=== PATIENT | female | born 1940 | race Caucasian/White ===

== ENCOUNTER 2017-09-16 02:33 | Emergency (ER) | payer MEDICARE, OTHER ==
--- NOTE | 2017-09-16 03:20 | RADIOLOGY REPORT (SQ) ---
EXAM DESCRIPTION: CT HEAD WITHOUT CLINICAL HISTORY: 77 years Female, trauma COMPARISON: None. TECHNIQUE: No contrast. Coronal and sagittal reformat. This exam was performed according to our departmental dose-optimization program, which includes automated exposure control, adjustment of the mA and/or kV according to patient size and/or use of iterative reconstruction technique. FINDINGS: No hemorrhage or infarct. No mass, mass effect, or midline shift. Atherosclerosis. Mild right frontal scalp swelling. Possible subcentimeter intracranial lipoma along the falx cerebri. Mild dextroconvexity of the nasal septum. Brain and extra-axial structures appear otherwise intact. IMPRESSION: Mild scalp swelling.
--- NOTE | 2017-09-16 03:29 | RADIOLOGY REPORT (SQ) ---
EXAM DESCRIPTION: ELBOW RIGHT AP/LAT CLINICAL HISTORY: 77 years, Female, trauma COMPARISON: None. NUMBER OF VIEWS: 2 Findings: Small osteophyte of the ulnar olecranon. Bones, joints, and soft tissues of ELBOW RIGHT AP/LAT appear otherwise intact. No significant effusion. IMPRESSION: No acute findings.
--- NOTE | 2017-09-16 03:34 | RADIOLOGY REPORT (SQ) ---
EXAM DESCRIPTION: WRIST RIGHT 3 VIEWS CLINICAL HISTORY: 77 years, Female, trauma COMPARISON: None. NUMBER OF VIEWS: Three LIMITATIONS: None. FINDINGS: Extensive comminuted intra-articular fractures of the distal right radius and ulna with the displaced fragments measuring up to 1.3 cm each. There is 0.7 cm lateral displacement of the radial fracture. No evidence of healing. 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 IMPRESSION: Distal right radial and ulnar fractures.
[2017-09-16] MEDS ORDERED: FENTANYL CITRATE INJ/PF 100 MCG/2 ML AMPUL IV ONE (03:55)
--- NOTE | 2017-09-16 04:27 | ER Document Report ---
ED General - General Chief Complaint: Wrist Injury Stated Complaint: FALL,WRIST INJURY Time Seen by Provider: 09/16/17 02:48 Notes: Patient is a pleasant 77-year-old female who fell walking as steps and fell onto an outstretched right hand. She has obvious deformity to the right wrist. She denies any other injuries. She denies hitting her head. She denies numbness into the fingers. TRAVEL OUTSIDE OF THE [place] IN LAST 30 DAYS: No - Related Data Allergies/Adverse Reactions: IV dye Allergy (Uncoded 09/16/17 02:36) Past Medical History - Social History Smoking Status: Never Smoker Chew tobacco use (# tins/day): No Frequency of alcohol use: None Drug Abuse: None Family History: None Patient has suicidal ideation: No Patient has homicidal ideation: No - Past Medical History Cardiac Medical History: Reports: Hx Hypercholesterolemia, Hx Hypertension Endocrine Medical History: Reports: Hx Diabetes Mellitus Type 2 Renal/ Medical History: Denies: Hx Peritoneal Dialysis Musculoskeltal Medical History: Reports Hx Arthritis Past Surgical History: Reports: Hx Bowel Surgery - RUQ Fatty Tumor, Hx Cholecystectomy, Hx Hysterectomy - Immunizations Hx Diphtheria, Pertussis, Tetanus Vaccination: Yes Review of Systems - Review of Systems Notes: My Normal Review Basic REVIEW OF SYSTEMS: CONSTITUTIONAL : Denies fever, chills, or sweats. Denies recent illness. MUSCULOSKELETAL: Right wrist pain SKIN: Denies rash or skin lesions. NEUROLOGICAL: Denies sensory or motor loss. ALL OTHER SYSTEMS REVIEWED AND NEGATIVE. Physical Exam - Vital signs Vitals: Temp 98.4 F 09/16/17 02:48 - Notes Notes: General Appearance: Well nourished, alert, cooperative, no acute distress, no obvious discomfort. Well-appearing. Vitals: reviewed, See vital signs table. Head: no swelling or tenderness to the head Eyes: PERRL, EOMI, Conjuctiva clear Mouth: No decreasd moisture Back: No tenderness to palpation of thoracic or lumbar spine. Neck: No tenderness palpation of cervical spine. No step-offs or deformities. Abdomen: Normal BS, soft, No rigidity, No abdominal tenderness, No guarding, no rebound, no abdominal masses, no organomegaly Extremities: strength 5/5 in all extremities, good pulses in all extremities, patient has obvious deformity to the right wrist. Some swelling over the area. She does have good distal sensation in all fingertips. She has mild pain to palpation of right elbow. No significant swelling or deformity to right elbow. Skin: warm, dry, appropriate color, no rash Neuro: speech clear, oriented x 3, normal affect, responds appropriately to questions. Course - Re-evaluation Re-evalutation: 09/17/17 05:20 Patient's x-ray shows distal radius and ulna fracture with very small amount of ulnar displacement and with some shortening. I do not feel that there is enough reduction to be performed where the benefits of attempting reduction of sedation outweigh the risks of sedation. I therefore placed the patient in a splint and will have her follow-up closely with orthopedics this week. Informed patient to return to ER immediately if she has any weakness numbness into the hand or she has worsening pain. Patient agrees with plan will be discharged home. Dictation of this chart was performed using voice recognition software; therefore, there may be some unintended grammatical errors. - Vital Signs Vital signs: Temp Pulse Resp BP Pulse Ox 98.3 F 18 100/87 H 94 09/16/17 04:58 09/16/17 04:48 09/16/17 04:48 09/16/17 04:48 Procedures - Immobilization Right Wrist Pre-Proc Neuro Vasc Exam: Normal Immobilizer type: Other - reverse sugar tong Performed by: Provider Post-Proc Neuro Vasc Exam: Normal Discharge - Discharge Clinical Impression: Colles' fracture Qualifiers: Encounter type: initial encounter Fracture type: closed Laterality: right Qualified Code(s): S52.531A - Colles' fracture of right radius, initial encounter for closed fracture Condition: Good Disposition: HOME, SELF-CARE Instructions: Oral Narcotic Medication ([facility]) Additional Instructions: Please follow up with the orthopedist. Call the office Monday for a close follow up appointment. The phone number for the office will be under the name Dr. Vasques. Please return to the ER immediately if you develop uncontrolled pain, numbness into your fingers, fevers, or feel unwell. Please loosen the marciano wrap on the splint if you feel that it is too tight. Prescriptions: Oxycodone HCl/Acetaminophen [Percocet 5-325 mg Tablet] 1 tab PO Q4H PRN #15 tablet PRN Reason: Referrals: DRU VASQUES DO [ACTIVE STAFF] - 09/18/17
[2017-09-16] MEDS ORDERED: HYDROCODONE/ACETAMINOPHEN 5-325 MG (6 TAB/ER DISP) PO PRN (04:29)
[2017-09-16 04:53] VITALS: BP 100/87
== END 2017-09-16 04:59 | disposition home or self-care (01) ==
LOC: ER 02:33
PROC: 2W3CX1Z Immobilization of Right Lower Arm using Splint (ICD-10-PCS; principal; 2017-09-16)
DX: S52.531A Colles' fracture of right radius, initial encounter for closed fracture (principal); R22.0 Localized swelling, mass and lump, head; W10.9XXA Fall (on) (from) unspecified stairs and steps, initial encounter; E78.00 Pure hypercholesterolemia, unspecified; I10 Essential (primary) hypertension; E11.9 Type 2 diabetes mellitus without complications; Z90.49 Acquired absence of other specified parts of digestive tract; Z90.710 Acquired absence of both cervix and uterus
CPT/HCPCS: 99284; 73070; 73110; 70450; 29125; J3010; A9270

== ENCOUNTER → 2017-09-18 | Outpatient (CLI) | payer MEDICARE, OTHER ==
[2017-09-18 17:12] LABS: ABSOLUTE BASOPHILS # (AUTO) 0.1 10^3/uL (0.0-0.2); ABSOLUTE EOSINOPHILS # (AUTO) 0.3 10^3/uL (0.0-0.6); ABSOLUTE LYMPHOCYTES (AUTO) 2.9 10^3/uL (0.5-4.7); ABSOLUTE NEUT (AUTO) 6.4 10^3/uL (1.7-8.2); EOSINOPHILS % (AUTO) 2.4 % (0-6); HEMATOCRIT 45.8 % (36.0-47.0); HEMOGLOBIN 15.3 g/dL (12.0-15.5); LYMPHOCYTES % (AUTO) 27.2 % (13-45); MEAN CORPUSCULAR HEMOGLOBIN 27.3 pg (27.0-33.4); MEAN CORPUSCULAR HGB CONC 33.5 g/dL (32.0-36.0); MEAN CORPUSCULAR VOLUME 82 fl (80-97); MONOCYTES % (AUTO) 9.1 % (3-13); PLATELET COUNT 271 10^3/uL (150-450); RED CELL DISTRIBUTION WIDTH 14.3 % (11.5-14.0); SEGMENTED NEUTROPHILS % (AUTO) 60.3 % (42-78); TOTAL CELLS COUNTED % (AUTO) 100 %; WHITE BLOOD COUNT 10.7 10^3/uL (4.0-10.5)
[2017-09-18 17:26] LABS: ANION GAP 12 (5-19); BLOOD UREA NITROGEN 8 mg/dL (7-20); CALCIUM 9.5 mg/dL (8.4-10.2); CARBON DIOXIDE 26 mmol/L (22-30); CHLORIDE 99 mmol/L (98-107); GLUCOSE 219 mg/dL (75-110); POTASSIUM 3.4 mmol/L (3.6-5.0); SODIUM 136.5 mmol/L (137-145)
== END ==
LOC: LAB 16:37
PROVIDERS: ATTEND Orthopaedic Surgery
DX: S52.501A Unspecified fracture of the lower end of right radius, initial encounter for closed fracture (principal); S52.531A Colles' fracture of right radius, initial encounter for closed fracture; X58.XXXA Exposure to other specified factors, initial encounter
CPT/HCPCS: 36415; 80048; 85025

== ENCOUNTER → 2017-09-18 | Outpatient (CLI) | payer MEDICARE, OTHER ==
--- NOTE | 2017-09-18 16:43 | RADIOLOGY REPORT (SQ) ---
EXAM DESCRIPTION: CHEST 2 VIEWS COMPLETED DATE/TIME: 09/18/2017 4:34 pm REASON FOR STUDY: PRE OP COMPARISON: None. EXAM PARAMETERS: NUMBER OF VIEWS: two views TECHNIQUE: Digital Frontal and Lateral radiographic views of the chest acquired. RADIATION DOSE: NA LIMITATIONS: none FINDINGS: LUNGS AND PLEURA: No opacities, masses or pneumothorax. No pleural effusion. MEDIASTINUM AND HILAR STRUCTURES: No masses or contour abnormalities. HEART AND VASCULAR STRUCTURES: Heart normal size. No evidence for failure. BONES: No acute findings. HARDWARE: None in the chest. Surgical clips in the upper abdomen. OTHER: No other significant finding. IMPRESSION: NO ACUTE RADIOGRAPHIC FINDING IN THE CHEST. TECHNICAL DOCUMENTATION: JOB ID: [id number] [employer]- All Rights Reserved Reading location - IP/workstation name: [email or web address]
--- NOTE | 2017-09-18 16:48 | RADIOLOGY REPORT (SQ) ---
EXAM DESCRIPTION: CT RT UPPER EXTREMITY WITHOUT COMPLETED DATE/TIME: 09/18/2017 4:28 pm REASON FOR STUDY: UNSPECIFIED FX OF THE LOWER END OF THE R RADIUS S52.501A UNSP FRACTURE OF THE LOW ER END OF RIGHT RADIUS, INI COMPARISON: Right wrist three views 09/16/2017 TECHNIQUE: Axial imaging performed through the right wrist with reformatted oblique coronal and obli que sagittal imaging windowed for bone and soft tissues. All CT scanners at this facility use dose modulation, iterative reconstruction, and/or weight based d osing when appropriate to reduce radiation dose to as low as reasonably achievable (ALARA). [facility]: Dose Right [facility]: CareDose [facility]: Dose Right [facility]: Teradose 4D [facility]: PublishThis RADIATION DOSE: CT Rad equipment meets quality standard of care and radiation dose reduction techniq ues were employed. CTDIvol: 32.0 - 32.2 mGy. DLP: 1339 mGy-cm. mGy. LIMITATIONS: Patient's arm is immobilized in a fiberglass cast. Patient was scanned with her right arm over her abdomen. There is streak artifact from beam hardening, and decreased resolution of bony structures due to technique FINDINGS: Right distal radius comminuted fracture involving the articular surface. There is slight radial displacement of the distal radius fracture fragment. Intra-articular extension is best shown on series 800, images 21-24. Nondisplaced ulnar styloid fracture, acute. No malalignment of the carpal bones. Osteoarthritis with joint space narrowing and bony spurring at the 1st carpometacarpal joint. IMPRESSION: Comminuted acute intra-articular fracture distal right radius metaphysis. Nonangulated. Slight radial subluxation of the distal fracture fragment. Ulnar styloid avulsion fracture, acute No gross carpal bone fracture or malalignment TECHNICAL DOCUMENTATION: JOB ID: [id number] Quality ID # [id number]: Final reports with documentation of one or more dose reduction techniques (e.g., Au tomated exposure control, adjustment of the mA and/or kV according to patient size, use of iterative reconstruction technique) 2010 [employer]- All Rights Reserved Reading location - IP/workstation name: [email or web address]
--- NOTE | 2017-09-18 21:18 | EKG REPORT ---
SEVERITY:- ABNORMAL ECG - SINUS RHYTHM LEFT BUNDLE BRANCH BLOCK : Confirmed by: Lakhwinder Mon 18-Sep-2017 21:17:48
== END ==
LOC: RAD 16:06
PROVIDERS: ATTEND Orthopaedic Surgery
DX: S52.571A Other intraarticular fracture of lower end of right radius, initial encounter for closed fracture (principal); X58.XXXA Exposure to other specified factors, initial encounter
CPT/HCPCS: 71046; 93005; 93010

== ENCOUNTER 2020-05-19 19:28 | Emergency (ER) | payer MEDICARE, OTHER ==
--- NOTE | 2020-05-19 20:46 | RADIOLOGY REPORT (SQ) ---
EXAM DESCRIPTION: Site: CHEST SINGLE VIEW RP: XR CHEST 1 VIEW CLINICAL HISTORY: 80 years Female; fall pain; COMPARISON: 09/18/2017 FINDINGS: Lungs: Lungs are clear, with no focal infiltrate, pneumothorax, or pleural effusion. Mediastinum: Mediastinum is within normal limits for this positioning. Bones: Bony structures are unremarkable. IMPRESSION: 1. No acute pulmonary findings.
--- NOTE | 2020-05-19 20:47 | RADIOLOGY REPORT (SQ) ---
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 FINDINGS: Single view is obtained. Visualized is a highly comminuted fracture involving the greater tuberosity of the humerus demonstrating a few displaced fragments. In addition, the humeral head is inferiorly and medially displaced relative to the glenoid, indicating an anterior shoulder dislocation. Visualized portions of the right lung are clear. IMPRESSION: Heavily comminuted/displaced fracture involving the greater tuberosity. Superimposed anterior shoulder dislocation.
[2020-05-19] MEDS ORDERED: HYDROMORPHONE HCL INJ/PF 2 MG/ML AMPULE IV ONE (22:34)
[2020-05-19] MEDS ORDERED: ONDANSETRON HCL INJ/PF 4 MG/2 ML SDV IV ONE (22:34)
--- NOTE | 2020-05-19 22:40 | ER Document Report ---
ED General <CARLEE WALDEN - Last Filed: 05/20/20 03:01> - General TRAVEL OUTSIDE OF THE [place] IN LAST 30 DAYS: No <RUBIA DAILEY - Last Filed: 05/20/20 06:41> - General Chief Complaint: Arm Injury Stated Complaint: FALL,RIGHT ARM INJURY Primary Care Provider: RAUL OVALLES MD [Primary Care Provider] - Follow up in 3-5 days () DRU VALLE DO [ACTIVE STAFF] - Follow up tomorrow Notes: 80F with DM, htn, osteoarthritis p/w pain in right shoulder after having mechanical trip and fall over an object that was on the floor in her house falling onto her right shoulder. Patient denies any pain anywhere else, head injury, neck pain, back pain, chest or abdominal pain, anticoagulation, weakness or numbness, dizziness (RUBIA DAILEY) - Related Data Allergies/Adverse Reactions: IV dye Allergy (Uncoded 09/16/17 02:36) Past Medical History - General Information source: Patient - Social History Smoking Status: Never Smoker Chew tobacco use (# tins/day): No Frequency of alcohol use: None Drug Abuse: None Family History: None Patient has homicidal ideation: No - Past Medical History Cardiac Medical History: Reports: Hx Hypercholesterolemia, Hx Hypertension Endocrine Medical History: Reports: Hx Diabetes Mellitus Type 2 Renal/ Medical History: Denies: Hx Peritoneal Dialysis Musculoskeletal Medical History: Reports Hx Arthritis Past Surgical History: Reports: Hx Bowel Surgery - RUQ Fatty Tumor, Hx Cholecystectomy, Hx Hysterectomy - Immunizations Hx Diphtheria, Pertussis, Tetanus Vaccination: Yes <RUBIA DAILEY - Last Filed: 05/20/20 06:41> Review of Systems <RUBIA DAILEY - Last Filed: 05/20/20 06:41> - Review of Systems Notes: REVIEW OF SYSTEMS: CONSTITUTIONAL : Denies fever, chills, or sweats. EENT: Denies recent cold/sinus symptoms, denies throat pain CARDIOVASCULAR: Denies chest pain, YASIR RESPIRATORY: Denies cough, denies shortness of breath. GASTROINTESTINAL: Denies abdominal pain, nausea/vomiting. GENITOURINARY: Denies difficulty urinating, painful urination. MUSCULOSKELETAL: Denies neck pain, back pain. SKIN: Denies rash or skin lesions. HEMATOLOGIC : Denies easy bruising or bleeding. LYMPHATIC: Denies swollen, enlarged glands. NEUROLOGICAL: Denies headache, denies change in gait. PSYCHIATRIC: Denies anxiety or stress or depression. (MACI DAILEYRA Manju) Physical Exam <RUBIA DAILEY - Last Filed: 05/20/20 06:41> - Vital signs Vitals: Resp Pulse Ox 16 95 05/19/20 19:40 05/19/20 19:40 - Notes Notes: PHYSICAL EXAMINATION: GENERAL: Well-appearing, well-nourished elderly woman in stretcher in pain from shoulder injury but no acute distress HEAD: Atraumatic, normocephalic. EYES: Pupils equal round and appropriate constriction, sclera anicteric, conjun ctiva are normal. ENT: nares patent, moist mucous membranes. NECK: Normal range of motion, supple without lymphadenopathy LUNGS: Breath sounds clear to auscultation bilaterally and equal. No wheezes rales or rhonchi. HEART: Regular rate and rhythm with faint systolic ejection murmur ABDOMEN: Soft, nontender, no guarding, no masses, no CVAT EXTREMITIES: Bilateral DP and radial pulses 2+, faint abrasion on lateral right knee with no focal bony tenderness and stable joint, no signs of trauma or tenderness on left upper or lower extremities, right shoulder deformity with tenderness at proximal humerus and anterior shoulder, normal sensation in all distributions, patient unable to range right shoulder, but right upper extremity distal strength 5 out of 5. No spinal deformity or tenderness. NEUROLOGICAL: Awake, alert, conversing appropriately, moves all extremities spontaneously. PSYCH: Normal mood, normal affect. SKIN: Warm, Dry (RUBIA DAILEY) Course - Laboratory Results Result Diagrams: 05/19/20 20:18 05/19/20 20:18 <CARLEE WALDEN - Last Filed: 05/20/20 03:01> - Laboratory Results Result Diagrams: 05/19/20 20:18 05/19/20 20:18 Critical Laboratory Results Reviewed: No Critical Results - Radiology Results Critical Radiology Results Reviewed: No Critical Results <RUBIA DAILEY - Last Filed: 05/20/20 06:41> - Re-evaluation Re-evalutation: 05/19/20 23:48 Rule out right shoulder fracture, likely dislocation, neurovascularly intact. Will obtain right knee DX as slight abrasion, but low likelihood for acute fracture. Tetanus up-to-date. Patient able to give reliable history for mechanical fall and no indication for additional testing to rule out alternate etiologies precipitating injury at this time. 05/20/20 01:25 Given the patient's comminuted fracture I consulted orthopedic surgeon Dr. Valle who came and performed the reduction. I consented patient for moderate sedation administered 120 milligrams ketamine for sedation and 30 mg of propofol. Patient desaturated briefly during intubation which resolved after increasing nasal cannula and ventilating patient for few breaths with BVM. 05/20/20 02:46 Patient now cleared from sedation, back to mental status baseline. Dr. Valle attempted reduction but repeat x-ray showed head of humerus fracture with multiple pieces so this would not be amenable to reduction. Patient will need full shoulder replacement with Dr. Valle on outpatient basis which I explained to her. I ordered labs and EKG for preop without any emergent findings. Patient ready for discharge, family member will come pick her up. Gave patient extensive return to ED precautions which she demonstrated understanding of. (RUBIA DAILEY) - Vital Signs Vital signs: Temp Pulse Resp BP Pulse Ox 98.1 F 79 14 183/64 H 96 05/19/20 19:43 05/20/20 00:06 05/20/20 02:33 05/20/20 02:33 05/20/20 02:33 - Laboratory Results Laboratory Results Interpreted: 05/19/20 05/19/20 20:18 20:18 WBC 11.5 H RBC 5.57 H Hgb 15.6 H RDW 14.3 H Lymph % (Auto) 12.9 L Absolute Neuts (auto) 8.9 H Sodium 135.0 L Glucose 216 H AST 47 H - EKG Interpretation by Me Additional EKG results interpreted by me: 05/20/20 03:17 Sinus rhythm, left bundle branch block, Sgarbossa's negative and no significant change from prior EKG (RUBIA DAILEY) Procedures - Conscious Sedation Conscious sedation Time started: 00:30 Time completed: 00:50 Consent obtained: Yes Indication: right shoulder dislocation reduction Pt with a mild systemic disease.: P2. - ASA Classification. Mallampati Classification: Class 3 Used during procedure: Suction available, IV access obtained, Pulse ox on pt., premix operator concentrate on pt. Medications administered: Ketamine, Other - propofol Reversal agents: None I personally performed/intraservice time: Sedation, 30 min or less <RUBIA DAILEY - Last Filed: 05/20/20 06:41> Discharge <IRAMCARLEE Jared - Last Filed: 05/20/20 03:01> <RUBIA DAILEY - Last Filed: 05/20/20 06:41> - Discharge Clinical Impression: Humeral fracture Qualifiers: Encounter type: initial encounter Humerus Location: proximal Fracture type: closed Fracture morphology: other fracture Fracture alignment: displaced Laterality: right Qualified Code(s): S42.291A - Other displaced fracture of upper end of right humerus, initial encounter for closed fracture Disposition: HOME, SELF-CARE Additional Instructions: Follow-up with Dr. Valle tomorrow to schedule outpatient follow-up for surgery. If you have any worsening pain, numbness, weakness, skin changes, arm swelling, chest pain, shortness of breath, dizziness, fainting, or any other worsening or alarming symptoms return to the emergency department immediately. Prescriptions: Oxycodone HCl/Acetaminophen [Percocet 5-325 mg Tablet] 1 tab PO Q6HP PRN #8 tablet PRN Reason: Forms: Elevated Blood Pressure Referrals: RAUL OVALLES MD [Primary Care Provider] - Follow up in 3-5 days () DRU VALLE DO [ACTIVE STAFF] - Follow up tomorrow
[2020-05-19] MEDS ORDERED: PROPOFOL INJ 200 MG/20 ML VIAL IV ONE (22:43)
[2020-05-19] MEDS ORDERED: KETAMINE HCL INJ 500 MG/10 ML VIAL IV ONE (22:43)
[2020-05-19] MEDS ORDERED: ACETAMINOPHEN 1,000 MG/100 ML RTUPB IV ONE (23:00)
--- NOTE | 2020-05-20 00:24 | Operative Report ---
Operative Report DATE OF SURGERY: 05/19/20 PREOPERATIVE DIAGNOSIS: Right shoulder fracture dislocation POSTOPERATIVE DIAGNOSIS: Same OPERATION: Attempted close reduction right shoulder fracture dislocation SURGEON: DRU VASQUES ANESTHESIA: Moderate Sedation COMPLICATIONS: None PROCEDURE: Timeout was performed confirming appropriate patient, extremity and procedure. Patient was placed under moderate sedation. Once adequate anesthetized reduction maneuver including inferior/lateral traction was performed attempt to reduce the dislocation. X-ray was performed which demonstrated comminuted three-part fracture of the proximal humerus. Patient was placed in a sling. Patient was awoken from sedation without complication
--- NOTE | 2020-05-20 00:29 | PDOC CONSULTATION ---
Consultation Consult Date: 05/19/20 Provider Consulted: DRU VASQUES Consult reason:: Fracture dislocation right shoulder History of Present Illness Admission Date/PCP: RAUL OVALLES MD Patient complains of: Shoulder pain History of Present Illness: RONI TELLEZ is a 80 year old female who sustained a fall when she tripped. Fall was sustained onto her right shoulder. Patient noted pain with motion of her shoulder. Denies numbness or tingling. Pain 5/5. Pain improved with rest. Denies additional injury. Denies chest pain or shortness of breath. Past Medical History Cardiac Medical History: Reports: Hyperlipidema, Hypertension Endocrine Medical History: Reports: Diabetes Mellitus Type 2 Musculoskeltal Medical History: Reports: Arthritis Past Surgical History Past Surgical History: Reports: Cholecystectomy, Hysterectomy Social History Smoking Status: Never Smoker Electronic Cigarette use?: No Family History Family History: None Parental Family History Reviewed: No - No family history of anesthesia complications Children Family History Reviewed: No Sibling(s) Family History Reviewed.: No Medication/Allergy Home Medications: Oxycodone HCl/Acetaminophen [Percocet 5-325 mg Tablet] 1 tab PO Q4H PRN #15 tablet 09/16/17 Allergies/Adverse Reactions: IV dye Allergy (Uncoded 09/16/17 02:36) Review of Systems Constitutional: ABSENT: chills, fever(s), headache(s), weight gain, weight loss Eyes: ABSENT: visual disturbances Ears: ABSENT: hearing changes Cardiovascular: ABSENT: chest pain, dyspnea on exertion, edema, orthropnea, palpitations Respiratory: ABSENT: cough, hemoptysis Gastrointestinal: ABSENT: abdominal pain, constipation, diarrhea, hematemesis, hematochezia, nausea, vomiting Genitourinary: ABSENT: dysuria, hematuria Musculoskeletal: PRESENT: as per HPI Integumentary: ABSENT: rash, wounds Neurological: ABSENT: abnormal gait, abnormal speech, confusion, dizziness, focal weakness, syncope Psychiatric: ABSENT: anxiety, depression, homidical ideation, suicidal ideation Endocrine: ABSENT: cold intolerance, heat intolerance, menstrual abnormalities, polydipsia, polyuria Hematologic/Lymphatic: ABSENT: easy bleeding, easy bruising, lymphadenopathy Physical Exam Vital Signs: Temp Pulse Resp BP Pulse Ox 98.1 F 88 10 L 178/67 H 95 05/19/20 19:43 05/19/20 19:43 05/19/20 20:01 05/19/20 20:01 05/19/20 20:01 Intake & Output 05/18/20 05/19/20 05/20/20 06:59 06:59 06:59 Weight 122.47 kg General appearance: PRESENT: no acute distress, obese, well-developed, well- nourished Head exam: PRESENT: atraumatic, normocephalic Eye exam: PRESENT: conjunctiva pink, EOMI, PERRLA. ABSENT: scleral icterus Ear exam: PRESENT: normal external ear exam Mouth exam: PRESENT: moist, tongue midline Neck exam: PRESENT: full ROM. ABSENT: carotid bruit, JVD, lymphadenopathy, thyromegaly Respiratory exam: PRESENT: unlabored Cardiovascular exam: PRESENT: RRR. ABSENT: diastolic murmur, rubs, systolic murmur Pulses: PRESENT: normal dorsalis pedis pul, +2 pedal pulses bilateral Vascular exam: PRESENT: normal capillary refill GI/Abdominal exam: PRESENT: soft. ABSENT: distended, guarding, mass, organolmegaly, rebound, tenderness Rectal exam: PRESENT: deferred Musculoskeletal exam: PRESENT: other Additional comments: Right shoulder: Tenderness palpation on the anterior aspect of the shoulder mild deformity noted. Pain with any attempted range of motion. Unable to assess elbow range of motion patient currently in trauma sling. Patient has intact flexion of the IP/MP joints however limited range of motion secondary to chronic osteoarthritis. No sensory deficits. Neurological exam: PRESENT: alert, awake, oriented to person, oriented to place, oriented to time, oriented to situation, CN II-XII grossly intact. ABSENT: motor sensory deficit Psychiatric exam: PRESENT: appropriate affect, normal mood. ABSENT: homicidal ideation, suicidal ideation Skin exam: PRESENT: dry, intact, warm. ABSENT: cyanosis, rash Results Impressions: Chest X-Ray 05/19/20 00:00 IMPRESSION: 1. No acute pulmonary findings. Shoulder X-Ray 05/19/20 00:00 IMPRESSION: Heavily comminuted/displaced fracture involving the greater tuberosity. Superimposed anterior shoulder dislocation. Status: Image reviewed by me - I have reviewed patient's radiographs consistent with comminuted fracture dislocation of the right shoulder with involvement of the greater tuberosity questionable involvement of the surgical neck given limitation of radiographs. Assessment & Plan - Diagnosis (1) Closed fracture dislocation of right shoulder Qualifiers: Encounter type: initial encounter Qualified Code(s): S42.91XA - Fracture of right shoulder girdle, part unspecified, initial encounter for closed fracture Is this a current diagnosis for this admission?: Yes Plan: Patient sustained a right shoulder fracture dislocation. Given the displaced and dislocated nature of the fracture we discussed treatment options and decision was made to proceed with closed reduction. Patient understands given the amount of comminution and fracture fragments there is a risk of irreducible dislocation and or need for future operative intervention. Patient will be sedated under the direction of the emergency room physician. See operative note for details. Unfortunately with attempted reduction fracture details was noted with three-part fracture. Given the three-part nature of the injury patient will require operative fixation which includes right reverse total shoulder arthroplasty. We will be in contact with the patient to discuss operative treatment.
[2020-05-20 00:53] LABS: ABSOLUTE BASOPHILS # (AUTO) 0.1 10^3/uL (0.0-0.2); ABSOLUTE EOSINOPHILS # (AUTO) 0.2 10^3/uL (0.0-0.6); ABSOLUTE LYMPHOCYTES (AUTO) 1.5 10^3/uL (0.5-4.7); ABSOLUTE MONOCYTES (AUTO) 0.8 10^3/uL (0.1-1.4); ABSOLUTE NEUT (AUTO) 8.9 10^3/uL (1.7-8.2); BASOPHILS % (AUTO) 0.7 % (0-2); EOSINOPHILS % (AUTO) 1.6 % (0-6); HEMATOCRIT 46.6 % (36.0-47.0); HEMOGLOBIN 15.6 g/dL (12.0-15.5); LYMPHOCYTES % (AUTO) 12.9 % (13-45); MEAN CORPUSCULAR HGB CONC 33.5 g/dL (32.0-36.0); MEAN CORPUSCULAR VOLUME 84 fl (80-97); MONOCYTES % (AUTO) 7.4 % (3-13); PLATELET COUNT 198 10^3/uL (150-450); RED BLOOD COUNT 5.57 10^6/uL (3.72-5.28); RED CELL DISTRIBUTION WIDTH 14.3 % (11.5-14.0); SEGMENTED NEUTROPHILS % (AUTO) 77.4 % (42-78); TOTAL CELLS COUNTED % (AUTO) 100 %; WHITE BLOOD COUNT 11.5 10^3/uL (4.0-10.5)
[2020-05-20 00:55] LABS: ALBUMIN 3.5 g/dL (3.5-5.0); ALKALINE PHOSPHATASE 79 U/L (38-126); ANION GAP 8 (5-19); ASPARTATE AMINO TRANSFERASE 47 U/L (14-36); BILIRUBIN,DIRECT 0.2 mg/dL (0.0-0.4); BILIRUBIN,TOTAL 0.8 mg/dL (0.2-1.3); BLOOD UREA NITROGEN 16 mg/dL (7-20); CALCIUM 9.4 mg/dL (8.4-10.2); CARBON DIOXIDE 29 mmol/L (22-30); CHLORIDE 98 mmol/L (98-107); GLUCOSE 216 mg/dL (75-110); POTASSIUM 3.9 mmol/L (3.6-5.0); TOTAL PROTEIN 6.8 g/dL (6.3-8.2)
[2020-05-20 00:58] LABS: INTERNATIONAL RATION (INR) 1.01; PARTIAL THROMBOPLASTIN TIME 29.9 SEC (23.5-35.8); PROTHROMBIN TIME 13.5 SEC (11.4-15.4)
--- NOTE | 2020-05-20 01:16 | RADIOLOGY REPORT (SQ) ---
EXAM DESCRIPTION: SHOULDER RIGHT 2 OR MORE VIEWS RadLex: XR SHOULDER 2 OR MORE VIEWS Views: 2 CLINICAL HISTORY: 80 years Female; reduction; COMPARISON: 05/19/2020 Impression: At least 3 part fracture of the right humeral head is again noted. There is persistent inferior dislocation of humeral head. No a.c. subluxation.
--- NOTE | 2020-05-20 01:19 | RADIOLOGY REPORT (SQ) ---
EXAM DESCRIPTION: XR KNEE COMPLETED DATE/TME: 05/20/2020 00:40 CLINICAL HISTORY: 80 years Female, pain COMPARISON: None. Findings: Small moderate tricompartmental osteoarthritis including moderate osteophytes of medial and lateral femoral condyles. Small patellar enthesophytes. Small right knee effusion. Bones, joints, and soft tissues of the RIGHT XR KNEE 4VIEWS appear otherwise unremarkable. IMPRESSION: Small right knee effusion. Moderate osteoarthritis.
[2020-05-20 01:46] VITALS: BP 183/64
[2020-05-20] MEDS ORDERED: OXYCODONE-ACETAMINOPHEN 5-325 MG TABLET PO ONE (03:49)
--- NOTE | 2020-05-20 10:46 | EKG REPORT ---
SEVERITY:- ABNORMAL ECG - SINUS RHYTHM LEFT BUNDLE BRANCH BLOCK : Confirmed by: Jeniffer Brown MD 20-May-2020 10:45:00
== END 2020-05-20 04:02 | disposition home or self-care (01) ==
LOC: ER 19:28
DX: S42.251A Displaced fracture of greater tuberosity of right humerus, initial encounter for closed fracture (principal); S80.211A Abrasion, right knee, initial encounter; W01.0XXA Fall on same level from slipping, tripping and stumbling without subsequent striking against object, initial encounter; Y92.009 Unspecified place in unspecified non-institutional (private) residence as the place of occurrence of the external cause; M17.11 Unilateral primary osteoarthritis, right knee; I44.7 Left bundle-branch block, unspecified; I10 Essential (primary) hypertension; E11.9 Type 2 diabetes mellitus without complications; Z91.041 Radiographic dye allergy status
CPT/HCPCS: 99285; 99152; 96374; 96375; 85025; 85610; 85730; 80053; 71045; 73560; 73020; 73030; 93005; 93010; 23665; J3490; A9270; J1170; J2405; J2704; J0131

== ENCOUNTER 2020-05-22 10:23 | Inpatient (IN) | payer MEDICARE, OTHER ==
[~2020-05-22 10:23] MED LIST: BUPIVACAINE INJ/PF LIPOSOME/PF 266 MG/20 ML SDV INJ PRN; CEFAZOLIN 2 GM/D5W RTU 2 GM/50 ML RTUPB IV ONE; CEFAZOLIN 2 GM/D5W RTU 2 GM/50 ML RTUPB IV PRN; IBUPROFEN 800 MG in NORMAL SALINE 250 ML IV PRN; OXYCODONE HCL SR 10 MG TABLET PO PRN; PANTOPRAZOLE SODIUM 20 MG TABLET.DR PO PRN
[2020-05-22] MEDS ORDERED: OXYCODONE HCL SR 10 MG TABLET PO ONE (12:25)
[2020-05-22] MEDS ORDERED: PANTOPRAZOLE SODIUM 20 MG TABLET.DR PO ONE (12:25)
[2020-05-22] MEDS ORDERED: MIDAZOLAM 2 MG/2 ML INJ ONE ×2 (12:38→13:00)
[2020-05-22] MEDS ORDERED: ROPIVACAINE HCL 0.5% INJ/PF (5 MG/1 ML) 30 ML SDV ONE (12:39)
[2020-05-22] MEDS ORDERED: FENTANYL CITRATE INJ/PF 100 MCG/2 ML AMPUL ONE (12:59)
[2020-05-22] MEDS ORDERED: EPHEDRINE SULFATE INJ 50 MG/1 ML AMPULE ONE (13:00)
[2020-05-22] MEDS ORDERED: PROPOFOL INJ 200 MG/20 ML VIAL IV ONE (13:00)
[2020-05-22] MEDS ORDERED: DEXAMETHASONE SOD PHOSPHATE INJ 4 MG/1 ML VIAL ONE (13:00)
[2020-05-22] MEDS ORDERED: ONDANSETRON HCL INJ/PF 4 MG/2 ML SDV ONE (13:00)
[2020-05-22] MEDS ORDERED: TRANEXAMIC ACID INJ/PF 1,000 MG/10 ML SDV ONE (13:00)
[2020-05-22] MEDS ORDERED: BUPIVACAINE INJ/PF LIPOSOME/PF 266 MG/20 ML SDV ONE (13:05)
[2020-05-22] MEDS ORDERED: PHENYLEPHRINE HCL INJ/PF 10 MG/1 ML SDV ONE (14:24)
[2020-05-22] MEDS ORDERED: SUCCINYLCHOLINE CHLORIDE INJ 200 MG/10 ML VIAL ONE (14:24)
[2020-05-22] MEDS ORDERED: MORPHINE SULFATE 10 MG/ML INJ IV PRN (15:21)
[2020-05-22] MEDS ORDERED: FENTANYL CITRATE INJ/PF 100 MCG/2 ML AMPUL IV PRN ×3 (15:21)
[2020-05-22] MEDS ORDERED: ONDANSETRON HCL INJ/PF 4 MG/2 ML SDV IV PRN (15:21)
[2020-05-22] MEDS ORDERED: PROMETHAZINE HCL INJ 25 MG/1 ML VIAL IV PRN ×2 (15:21)
[2020-05-22] MEDS ORDERED: DIPHENHYDRAMINE HCL 50 MG/ML VIAL IV PRN (15:21)
[2020-05-22] MEDS ORDERED: MEPERIDINE HCL/PF INJ 25 MG/1 ML DISP.SYRIN IV PRN (15:21)
[2020-05-22] MEDS ORDERED: VANCOMYCIN HCL INJ 1000 MG VIAL ONE (15:35)
[2020-05-22] MEDS ORDERED: RINGERS SOLUTION,LACTATED 1,000 ML IV PRN (17:47)
[2020-05-22] MEDS ORDERED: CEFAZOLIN 2 GM/D5W RTU 2 GM/50 ML RTUPB IV SCH (18:00)
--- NOTE | 2020-05-22 18:05 | Operative Report ---
Operative Report DATE OF SURGERY: 05/22/20 PREOPERATIVE DIAGNOSIS: Right proximal humerus four-part fracture dislocation POSTOPERATIVE DIAGNOSIS: Same OPERATION: Right reverse total shoulder arthroplasty for proximal humerus fracture ANESTHESIA: GA COMPLICATIONS: None ESTIMATED BLOOD LOSS: 200 cc PROCEDURE: Indication for above procedure: 80-year-old female who sustained a fall onto her right upper extremity. She was seen at the emergency room where x-rays demonstrated comminuted four-part proximal humerus fracture with anterior inferior dislocation. Close reduction was attempted but patient continued to have persistent dislocation. Given the risk of avascular necrosis and significant displacement decision was made to proceed with operative intervention. Procedure In Detail: Patient was seen and evaluated in the preoperative holding area. The RIGHT upper extremity was initialized and marked. Patient received 3g of Ancef IV for bacterial prophylaxis. Patient was taken back to the operative room where transferred to the operative table and placed under general anesthesia. Once they were adequately anesthetized patient placed in the beachchair position. Cervical spine was placed in neutral position all bony prominences were padded including nonoperative upper extremity and bilateral lower extremity. A surgical team debriefing was performed ensuring all instrumentation was available, the surgical procedure was discussed with possible concerns reviewed. The upper extremity was prepped with ChloraPrep draped in a sterile fashion. A timeout was done identifying correct patient, procedure and extremity everyone in attendance agree with this and verbalized no concerns. Longitudinal skin incision was made medial to the AC joint extending along the lateral third of the humerus at the level of the axilla. Blunt dissection was performed. Any peripheral veins were coagulated bipolar cautery. Deltopectoral interval was utilized retracting the cephalic vein laterally any tributaries were coagulated bipolar cautery. Clavicle pectoralis fascia and biceps tendon was then isolated biceps tenotomy was performed. There was significant comminution of the greater and lesser tuberosities. A tag stitch was placed within the musculotendinous junction of the supraspinatus and subscapularis which were then booked open to isolate the humeral head which was removed. Wound was then copiously irrigated with normal saline now widely The pectoralis major insertion was then marked with a Bovie to determine height at the end of the case. Retractor was placed posterior and anterior to the glenoid. The anterior posterior capsule was then excised along with remanent biceps tendon. Optimal exposure was obtained along the glenoid. The central portion of the glenoid was then marked. Utilizing the Arthrex guide pin was advanced. A 35 mm screw was measured thus a 30 mm screw would be utilized. The glenoid was then reamed to cancellus bone. A size 24 baseplate and a size 33 glenosphere was chosen. The glenosphere reamer was then advanced to the stop. Guidepin was drilled and tapped. The 24+2, 30 mm modular screw implant was then inserted. It was confirmed down with a Laurel elevator. Wound was irrigated with saline. The screw holes were then drilled the appropriate size locking screws were placed superior, inferior, posterior and anterior. The size 33+4 glenosphere was then implanted and locking screw placed. Firm pressure was applied to ensure adequate fixation. Wound was then copiously irrigated with normal saline. The humerus was then prepared. neon sign erector was inserted up to a size 10. Then began broaching broaching to a size 9 implant excellent peripheral fit was obtained. A 33+3 implant was then trialed and then a 33+6 implant was trialed patient had good stability with the +6 implant and thus decision was made to proceed with implantation of a size 9 humeral stem. Wound was copiously irriga cadence with normal saline. Size 9 stem was inserted maintaining appropriate version which was marked on the humerus. This was then trialed unfortunately patient had instability of the implant with trialing thus decision was made to proceed with cement fixation. 2 drill holes were placed along the anterior humerus and FiberWire sutures inserted to allow later tuberosity repair. The canal was then prepared and dried as per cement technique it was then prepared on the back table. A cement restrictor was inserted into the canal. Cement was filled and implant inserted at the appropriate version which was confirmed prior to implantation. Any remnant cement was removed. Once the cement had hardened set the size 33+6 implant was trialed good stability was obtained throughout range of motion without significant tightness. There is no instability with adduction and internal rotation. No instability with flexion abduction and external rotation. Thus the polyethylene was then implanted. P rior to implantation of polyethylene stitch was placed from the lesser tuberosity into the implant into the greater tuberosity musculotendinous junction and into the anterior suture hole of the implant. Wound was irrigated with normal saline and Betadine. The initial FiberWire suture through the implant was secured with the shoulder at 30 degrees of external rotation. Any defects were filled with bone graft taken from the humeral head. An additional suture was placed from the lesser tuberosity to the greater tuberosity at the musculotendinous junction and secured. Finally the 2 remaining sutures within the humerus were placed in a [id number] type fashion x2 further securing the tuberosities. The tuberosities rotated dependently with the humerus there was no evidence of instability. 1 g of vancomycin powder was placed within the wound. Deltopectoral interval was then closed with interrupted #1 and 0 Vicryl suture. Subcutaneous tissues were closed with interrupted 2-0 Vicryl suture. Skin was closed with lindsay. A Acticoat dressing was applied. Patient was placed in a sling. Sponge counts, instrument counts, needle counts were correct. Patient was then awoken from anesthesia. Transferred from the operating room table to the operating room stretcher. There was no intraoperative complications patient tolerated procedure well stable to PACU. IMPLANTS: ARTHREX Universe Reverse sized 24 mm baseplate +2 lateral, Universe Reverse 33 glenosphere +4 lateralized, 30 mm modular glenoid screw ARTHREX Universe Reverse modular suture cup 36 neutral, Universe Reverse humeral stem size 9, Universe Reverse modular glenoid system 36+6/33 humeral polyethylene insert Postop plan: Patient will be admitted to the hospital for overnight stay. Will be started on enteric-coated aspirin 325 mg daily for DVT prophylaxis.
--- NOTE | 2020-05-22 19:21 | RADIOLOGY REPORT (SQ) ---
EXAM DESCRIPTION: SHOULDER RIGHT 2 OR MORE VIEWS IMAGES COMPLETED DATE/TIME: 05/22/2020 6:23 pm REASON FOR STUDY: Post op S42.91XA FRACTURE OF RIGHT SHOULDER GIRDLE, PART UNSP, INIT COMPARISON: None. NUMBER OF VIEWS: Three views. TECHNIQUE: Internal rotation, external rotation, and Y view images acquired of the right shoulder. LIMITATIONS: None. FINDINGS: Postop images show a right shoulder arthroplasty in good position. IMPRESSION: Right shoulder arthroplasty. Refer to operative note for further information. TECHNICAL DOCUMENTATION: JOB ID: [id number] 2010 [employer]- All Rights Reserved Reading location - IP/workstation name: [email or web address]
[2020-05-22] MEDS: OXYCODONE HCL SR 10 MG TABLET PO SCH (21:11)
[2020-05-22] MEDS: ACETAMINOPHEN 1,000 MG/100 ML RTUPB IV SCH (21:11)
[2020-05-22] MEDS: CEFAZOLIN SODIUM 2 GM in DEXTROSE 5%-WATER 100 ML IV SCH (22:32)
[2020-05-23] MEDS: CEFAZOLIN SODIUM 2 GM in DEXTROSE 5%-WATER 100 ML IV SCH ×3 (02:51→15:30)
[2020-05-23] MEDS: ACETAMINOPHEN 1,000 MG/100 ML RTUPB IV SCH ×2 (05:00→15:30)
[2020-05-23] MEDS: OXYCODONE HCL IR 5 MG TABLET PO PRN ×2 (05:18→14:15)
[2020-05-23 06:54] LABS: HEMATOCRIT 34.3 % (36.0-47.0); HEMOGLOBIN 11.4 g/dL (12.0-15.5); MEAN CORPUSCULAR HEMOGLOBIN 27.4 pg (27.0-33.4); MEAN CORPUSCULAR HGB CONC 33.2 g/dL (32.0-36.0); MEAN CORPUSCULAR VOLUME 83 fl (80-97); PLATELET COUNT 206 10^3/uL (150-450); RED BLOOD COUNT 4.15 10^6/uL (3.72-5.28); RED CELL DISTRIBUTION WIDTH 14.6 % (11.5-14.0); WHITE BLOOD COUNT 15.3 10^3/uL (4.0-10.5)
[2020-05-23 07:00] LABS: INTERNATIONAL RATION (INR) 1.06
[2020-05-23] MEDS: OXYCODONE HCL SR 10 MG TABLET PO SCH (09:43)
[2020-05-23] MEDS ORDERED: ASPIRIN 325 MG TABLET, ENT COATED PO SCH (10:00)
[2020-05-23 14:09] VITALS: BP 121/49
[2020-05-23] MEDS ORDERED: CEFAZOLIN SODIUM 2 GM in DEXTROSE 5%-WATER 100 ML IV SCH (22:00)
== END 2020-05-23 14:00 | disposition home or self-care (01) | DRG 483 ==
LOC: INOR 11:02 → 4S 19:37
PROVIDERS: ADMIT Orthopaedic Surgery; ATTEND Orthopaedic Surgery
PROC: 0RRJ00Z Replacement of Right Shoulder Joint with Reverse Ball and Socket Synthetic Substitute, Open Approach (ICD-10-PCS; principal; 2020-05-22 14:15)
DX: S42.201A Unspecified fracture of upper end of right humerus, initial encounter for closed fracture (principal); W19.XXXA Unspecified fall, initial encounter; K21.9 Gastro-esophageal reflux disease without esophagitis; E78.00 Pure hypercholesterolemia, unspecified; E11.9 Type 2 diabetes mellitus without complications; I10 Essential (primary) hypertension; Z88.8 Allergy status to other drugs, medicaments and biological substances; Z79.84 Long term (current) use of oral hypoglycemic drugs; Z79.899 Other long term (current) drug therapy; E66.9 Obesity, unspecified; Z20.828 Contact with and (suspected) exposure to other viral communicable diseases
CPT/HCPCS: 01638; 36415; 64415; 71045; 76942; 80053; 82947; 82962; 83036; 84132; 85025; 85027; 85610; 85730; 86850; 86900; 86901; 93005; 93010; 96374; 96375; 99285; 0241U; 99152; C1713; C1776; C9290; C9803; J0131; J0330; J0690; J1100; J1170; J1741; J2250; J2370; J2405; J2704; J2795; J3010; J3370; J3490; J7050; J7060; J7120